=== PATIENT | female | born 1990 | race Caucasian/White ===

== ENCOUNTER 2019-04-07 11:51 | Outpatient (CLI) | payer OTHER ==
[~2019-04-07 11:51] MED LIST: MEDROL4 MG PO; ZYRTEC10 MG PO
== END 2019-04-07 13:53 | disposition home or self-care (01) ==
LOC: NST 11:51
DX: Z34.83 Encounter for supervision of other normal pregnancy, third trimester (principal)

== ENCOUNTER 2019-04-28 12:59 | Outpatient (CLI) | payer OTHER | END 2019-04-28 13:46 | disposition home or self-care (01) | LOC: NST 12:59 | DX: Z34.83 Encounter for supervision of other normal pregnancy, third trimester (principal) ==

== ENCOUNTER 2019-05-12 15:32 | Outpatient (CLI) | payer OTHER | END 2019-05-12 16:00 | disposition home or self-care (01) | LOC: NST 15:32 | DX: Z34.83 Encounter for supervision of other normal pregnancy, third trimester (principal) ==

== ENCOUNTER 2019-05-13 10:28 | Outpatient (CLI) | payer OTHER | END 2019-05-13 11:24 | disposition home or self-care (01) | LOC: NST 10:28 | DX: Z34.83 Encounter for supervision of other normal pregnancy, third trimester (principal) ==

== ENCOUNTER → 2019-05-23 | Outpatient (CLI) | payer OTHER | END | disposition home or self-care (01) | LOC: NST 17:23 | DX: Z34.83 Encounter for supervision of other normal pregnancy, third trimester (principal) ==

== ENCOUNTER 2019-05-26 14:30 | Inpatient (IN) | payer OTHER ==
[~2019-05-26] VITALS: Ht 154.9 cm; Wt 3.2 kg
[2019-06-08] MEDS ORDERED: PRENATAL TABLE1 EAC2 PO (10:38)
[2019-06-08] MEDS ORDERED: IRON325 MG PO (10:39)
[2019-06-11] MEDS ORDERED: OXYC1TAB9 PO (08:04)
[2019-06-11] MEDS ORDERED: KETO10TA2 PO (08:04)
== END 2019-06-11 10:34 | disposition home or self-care (01) | DRG 788 ==
LOC: OB/GYN 14:30 → LDR 06-08 09:27 → OB/GYN 06-08 09:27 → O/R 06-08 17:22 → OB/GYN 06-08 18:10
PROVIDERS: ADMIT Obstetrics & Gynecology Maternal & Fetal Medicine
PROC: 4A0HXFZ Measurement of Products of Conception, Cardiac Rhythm, External Approach (ICD-10-PCS; 2019-06-08)
PROC: 10D00Z1 Extraction of Products of Conception, Low, Open Approach (ICD-10-PCS; principal; 2019-06-08 16:00)
DX: O82 Encounter for cesarean delivery without indication (principal); Z3A.38 38 weeks gestation of pregnancy; Z37.0 Single live birth; O33.8 Maternal care for disproportion of other origin

== ENCOUNTER 2025-09-08 07:00 | Day surgery (SDC) | payer OTHER ==
[2025-09-06 08:16] VITALS: BP 119/79
[2025-09-06 09:22] LABS: BASO % 1.1 % (0.1-1.2); EOS # 0.09 (0.04-0.54); EOS % 1.6 % (0.7-7.0); LYMPH # 1.24 (1.18-3.74); LYMPH % 22.1 % (19.3-53.1); MEAN PLATELET VOLUME 12.20 fl (9.4-12.4); MONO # 0.50 (0.24-0.82); MONO % 8.9 % (4.7-12.5); NEUT # 3.71 (1.56-6.13); NEUT % 66.1 % (34.0-71.1); RED CELL DISTRIBUTION WIDTH 13.6 % (11.6-14.4)
[2025-09-06 09:40] LABS: INR 1.06
[2025-09-06 09:48] LABS: ALT/SGPT 21.0 U/L (12-78); AST/SGOT 12.0 U/L (15-37); BILIRUBIN TOTAL 0.28 mg/dL (0.3-1.2); BUN CREA RATIO 15.0 (7.0-25.0); CREATININE SERUM 0.73 mg/dL (0.55-1.02); GFR 89.7; GLOBULINA 3.6 G/DL (2.4-3.5); GLUCOSE FASTING 87.0 mg/dL (65-100); OSMOLALITY SERUM 282.0 MOSM/KG (275-295)
[~2025-09-08] VITALS: Ht 154.9 cm; Wt 63.0 kg
[~2025-09-08 07:00] MED LIST changes: +IRON325 MG PO; +KETO10TA2 PO; +OXYC1TAB9 PO; +PRENATAL TABLE1 EAC2 PO
[2025-09-08] MEDS ORDERED: POVIDONE-IODINE 118 ML BOTT TOP ONE (08:32)
== END 2025-09-08 16:00 | disposition home or self-care (01) ==
LOC: CIR.AMB 07:00
PROVIDERS: ATTEND Obstetrics & Gynecology Maternal & Fetal Medicine
DX: N84.0 Polyp of corpus uteri (principal)